=== PATIENT | female | born 1975 | race Two or more races ===

== ENCOUNTER 2021-12-07 08:44 | Emergency (ER) | payer OTHER ==
[~2021-12-07] VITALS: Ht 149.9 cm; Wt 59.0 kg
[~2021-12-07 08:44] MED LIST: GILTUSS TR TAB1 EACH PO; ZITHROMAX500 MG PO
== END 2021-12-07 15:43 | disposition home or self-care (01) ==
LOC: ER 08:44
DX: N39.0 Urinary tract infection, site not specified (principal); N83.201 Unspecified ovarian cyst, right side